=== PATIENT | male | born 1945 | race Caucasian/White ===

== ENCOUNTER 2017-09-23 11:02 | Observation (INO) ==
--- NOTE | 2017-09-23 11:08 | Emergency Department Note ---
Disposition Clinical Impression: Dehydration, Generalized weakness Fatigue Qualifiers: Fatigue type: unspecified Qualified Code(s): R53.83 - Other fatigue Fever Qualifiers: Fever type: unspecified Qualified Code(s): R50.9 - Fever, unspecified Disposition: Admitted As Inpatient Condition: Good Time of Disposition: 11:57 General Adult HPI - General Chief complaint: ED General Medical Stated complaint: Flu-Like Symptoms x 3 weeks Time Seen by Provider: 09/23/17 11:05 Source: patient, EMS Mode of arrival: EMS Limitations: no limitations Nursing Notes Reviewed: Yes Vital Signs Reviewed: Yes - History of Present Illness HPI Narrative: Patient is a 72-year-old male with past medical history of hypertension, diabetes, high cholesterol. He presents today from home due to generalized fatigue and weakness, decreased appetite, fever, nausea, urinary urgency and frequency. Patient states that for the past 3 weeks, he has felt "generally unwell". The symptoms of been worsening over the past 3 weeks, especially worsened over the past 3-4 days. Patient was seen at urgent care outside and was tested for flu. Patient states that flu swab was negative but he was still treated with Tamiflu. Today, he had a fever at home up to 102 per . The patient otherwise denies any rhinorrhea, cough, congestion, sore throat, chest pain, productive cough, over abdominal pain, vomiting. He does admit to occasional cough, feeling generally fatigued. He also has noticed that he has been having a more urgent sensation to urinate but denies any dysuria, hematuria. Denies any diarrhea, constipation, blood in stool. He also feels as though he is dehydrated due to decreased intake. Denies any cardiac history of NH, stents. - Related Data Home Medications Medication Instructions Recorded Confirmed ALPRAZolam [Xanax 0.5 MG Tablet] 0.5 mg PO TID 10/05/16 09/23/17 Albuterol Sulfate [Ventolin Hfa] 2 puff IH Q4-6H PRN 10/05/16 09/23/17 Ciclopirox 1 appl TP BID 10/05/16 09/23/17 Clobetasol Propionate [Temovate] 1 appl TP BID 10/05/16 09/23/17 Losartan Potassium [Cozaar] 100 mg PO DAILY 10/05/16 09/23/17 Pantoprazole Sodium [Protonix] 40 mg PO DAILY 10/05/16 09/23/17 Simvastatin [Zocor] 20 mg PO HS 10/05/16 09/23/17 glipiZIDE [Glucotrol] 5 mg PO BIDWM 10/05/16 09/23/17 hydroCHLOROthiazide 25 mg PO DAILY 10/05/16 09/23/17 [Hydrochlorothiazide] metFORMIN [Glucophage] 500 mg PO BIDWM 10/05/16 09/23/17 Sildenafil Citrate [Viagra] 100 mg PO DAILY PRN 09/23/17 09/23/17 Previous Rx's Medication Instructions Recorded Oseltamivir [Tamiflu] 75 mg PO BID #10 capsule 09/21/17 Allergies Allergy/AdvReac Type Severity Reaction Status Date / Time No Known Allergies Allergy Verified 09/23/17 12:56 All systems ED: reviewed and negative except as stated. Constitutional: Reports: fever, weakness Eyes: Denies: eye pain ENT ED: Denies: ear pain, throat pain, congestion Cardiovascular: Denies: chest pain, palpitations Respiratory: Reports: cough. Denies: dyspnea, wheezes, hemoptysis, sputum production Gastrointestinal: Reports: nausea. Denies: abdominal pain, vomiting, diarrhea, constipation, hematemesis, melena, hematochezia Genitourinary: Reports: urgency, frequency. Denies: dysuria, hematuria Integumentary: Denies: rash Neurological: Denies: headache, numbness, paresthesias Endocrine: Reports: fatigue Past Medical History - Past Medical History Attestation: Yes The following information was validated with the patient. Source: patient Medical history: Reports: diabetes, hypertension Surgical history: Reports: appendectomy, orthopedic, other, other Psychiatric history: Reports: no psych history - Social History Smoking Status: Never smoker Smokeless Tobacco Status: No Alcohol use: Reports: none Drug use: Reports: none Physical Exam - General Limitations: no limitations General appearance: alert, in no apparent distress, other (looks to feel generally unwell) - Head Head exam: atraumatic, normocephalic, normal inspection - Eye Eye exam: Present: normal appearance, PERRL, EOMI - ENT ENT exam: other (mucous membranes tacky, no erythema or exudate) - Neck Neck exam: Present: normal inspection, full ROM, trachea midline - Chest Chest inspection: Present: normal inspection, symmetric chest wall rise - Respiratory Respiratory exam: Present: normal lung sounds bilaterally. Absent: respiratory distress, wheezes, stridor - Cardiovascular Cardiovascular exam: Present: normal rhythm, tachycardia, normal heart sounds - Abdominal Exam Abdominal exam: Present: soft, Non-Tender. Absent: tenderness, distention, guarding, rebound, rigidity - Extremities Exam Extremities exam: Present: normal inspection, full ROM. Absent: tenderness, pedal edema - Neurological Exam Neurological exam: Present: alert, oriented X3. Absent: motor sensory deficit - Psychiatric Psychiatric exam: Present: normal mood, flat affect - Skin Skin exam: Present: warm, dry, intact, normal color. Absent: rash Course Course Narrative: Patient was tachycardic on presentaiton, otherwise the rest of the vitals were WNL. Physical exam shows a patient who appears to feel unwell, heart exam shows sinus tach, lungs CTA bilaterally. Abdominal exam benign and shows no tenderness. HEENT benign except for tacky mucous membranes. Will obtain EKG, trop, CXR due to generalized fatigue. Will also obtain basic bloodwork, LFTs. Will give the patient NS for tacky mucous membranes and tachycardia. No nausea or pain at this time. 11:38 EKG shows sinus tachycardia with no acute ST changes. 12:33 CBC shows no signs of leukocytosis. Hemoglobin within normal limits. BMP shows mildly decreased sodium that would go along with his dehydration. Otherwise, endometrial ischial abnormalities. LFTs show a very mild increase in total bilirubin and AST. Patient has no right upper quadrant tenderness on exam, do not feel that he warrants a gallbladder ultrasound at this time. Urinalysis shows no bacteria, trace leukocyte esterase, nitrate negative. X- ray negative for any acute cardiopulmonary process. Presenation likely consistent with a viral illness. Patient was given 1 L normal saline bolus here and he was reassessed. Patient and state that they are not comfortable with going home because the patient still feels generally weak, cannot get out of the bed. also states that he has not been able to get out of the bed to go to the restroom. We will give the patient another liter saline bolus and placed on maintenance fluids. We will admit the patient for general weakness, fatigue, dehydration, history of fever. We will also give the patient Motrin for generalized body ache. Remains afebrile during ER visit. Vital Signs Temperature 97.1 F L 09/23/17 11:04 Pulse Rate 104 09/23/17 11:04 Respiratory Rate 18 09/23/17 11:04 Blood Pressure 124/77 09/23/17 11:04 O2 Sat by Pulse Oximetry 94 09/23/17 11:04 Temperature 100.5 F H 09/23/17 13:55 Pulse Rate 90 09/23/17 13:55 Respiratory Rate 18 09/23/17 13:55 Blood Pressure 119/78 09/23/17 13:55 O2 Sat by Pulse Oximetry 96 09/23/17 13:55 Oxygen Delivery Oxygen Delivery Room Air Medical Decision Making - MDM Narrative Medical decision making narrative: CBC shows no signs of leukocytosis. Hemoglobin within normal limits. BMP shows mildly decreased sodium that would go along with his dehydration. Otherwise, endometrial ischial abnormalities. LFTs show a very mild increase in total bilirubin and AST. Patient has no right upper quadrant tenderness on exam, do not feel that he warrants a gallbladder ultrasound at this time. Urinalysis shows no bacteria, trace leukocyte esterase, nitrate negative. X- ray negative for any acute cardiopulmonary process. Presenation likely consistent with a viral illness. Patient was given 1 L normal saline bolus here and he was reassessed. Patient and state that they are not comfortable with going home because the patient still feels generally weak, cannot get out of the bed. also states that he has not been able to get out of the bed to go to the restroom. We will give the patient another liter saline bolus and placed on maintenance fluids. We will admit the patient for general weakness, fatigue, dehydration, history of fever. We will also give the patient Motrin for generalized body ache. Remains afebrile during ER visit. - Medical Records Medical records reviewed: Yes I reviewed the patient's medical records. - Lab Data Lab results reviewed: Yes I reviewed the patient's lab results. Result diagrams: 09/23/17 11:17 09/23/17 11: Lab Results 09/23/17 09/23/17 09/23/17 Range/Units 11:17 11:17 11:17 WBC 9.5 (4.3-11.1) K/mcL RBC 4.80 (4.19-5.50) M/mcL Hgb 14.3 (12.9-16.9) g/dL Hct 40.6 (37.5-50.1) % MCV 84.6 (83.0-100.0) fL MCH 29.8 (28.0-33.3) pg MCHC 35.2 (31.6-35.5) g/dL RDW 12.7 (11.5-14.5) % Plt Count 148 (140-400) K/mcL MPV 9.3 L (9.4-12.4) fL Immature Gran % 0.4 (0-4) % Seg Neutrophils % 87.7 % Lymphocytes % 5.3 % Monocytes % 6.3 % Eosinophils % 0.0 % Basophils % 0.3 % Neutrophils # 8.3 (1.6-8.9) K/mcL Lymphocytes # 0.5 L (0.6-4.6) K/mcL Monocytes # 0.6 (0.0-1.3) K/mcL Eosinophils # 0.0 (0.0-0.6) K/mcL Basophils # 0.0 (0.0-0.2) K/mcL Sodium 134 L (136-145) mEq/L Potassium 3.3 L (3.5-4.5) mEq/L Chloride 99 (98-109) mEq/L Carbon Dioxide 25 (19-29) mEq/L BUN 17 (8-26) mg/dL Creatinine 1.07 (0.72-1.25) mg/dL Est GFR ( Amer) > 60 (> 60) Est GFR (Non-Af Amer) > 60 (> 60) BUN/Creatinine Ratio 16 (6-26) Glucose 118 H (70-99) mg/dL POC Glucose (58-89) Calculated Osmolality 281 (280-300) Calcium 8.9 (8.6-10.8) mg/dL Total Bilirubin 1.5 H (0.2-1.2) mg/dL AST 53 H (5-34) Units/L ALT 44 (0-55) Units/L Alkaline Phosphatase 69 (38-126) Units/L Troponin I 0.01 (0-0.03) ng/mL Serum Total Protein 7.6 (6.0-8.3) g/dL Albumin 2.8 L (3.5-5.0) g/dL Globulin 4.8 H (2.4-3.5) g/dL Albumin/Globulin Ratio 0.6 L (1.1-2.2) Urine Color (Yellow) Urine Clarity (Clear) Urine pH (5.0-8.0) pH Units Ur Specific [place] (1.010-1.025) Urine Protein (Neg-Trace) mg/dL Urine Glucose (UA) (Normal) mg/dL Urine Ketones (Negative) mg/dL Urine Blood (Negative) Urine Nitrite (Negative) Urine Bilirubin (Negative) Urine Urobilinogen (Normal) mg/dL Ur Leukocyte Esterase (Negative) Urine Microscopic RBC (0-3) per hpf Urine Microscopic WBC (0-3) per hpf Ur Squamous Epith Cells (None-Few) per lpf Amorphous Sediment (Few) Urine Bacteria (None-Few) per hpf Hyaline Casts Urine Mucus (Few) Ur Culture Indicated? (NO) 09/23/17 09/23/17 Range/Units 11:30 11:34 WBC (4.3-11.1) K/mcL RBC (4.19-5.50) M/mcL Hgb (12.9-16.9) g/dL Hct (37.5-50.1) % MCV (83.0-100.0) fL MCH (28.0-33.3) pg MCHC (31.6-35.5) g/dL RDW (11.5-14.5) % Plt Count (140-400) K/mcL MPV (9.4-12.4) fL Immature Gran % (0-4) % Seg Neutrophils % % Lymphocytes % % Monocytes % % Eosinophils % % Basophils % % Neutrophils # (1.6-8.9) K/mcL Lymphocytes # (0.6-4.6) K/mcL Monocytes # (0.0-1.3) K/mcL Eosinophils # (0.0-0.6) K/mcL Basophils # (0.0-0.2) K/mcL Sodium (136-145) mEq/L Potassium (3.5-4.5) mEq/L Chloride (98-109) mEq/L Carbon Dioxide (19-29) mEq/L BUN (8-26) mg/dL Creatinine (0.72-1.25) mg/dL Est GFR ( Amer) (> 60) Est GFR (Non-Af Amer) (> 60) BUN/Creatinine Ratio (6-26) Glucose (70-99) mg/dL POC Glucose 124 H (58-89) Calculated Osmolality (280-300) Calcium (8.6-10.8) mg/dL Total Bilirubin (0.2-1.2) mg/dL AST (5-34) Units/L ALT (0-55) Units/L Alkaline Phosphatase (38-126) Units/L Troponin I (0-0.03) ng/mL Serum Total Protein (6.0-8.3) g/dL Albumin (3.5-5.0) g/dL Globulin (2.4-3.5) g/dL Albumin/Globulin Ratio (1.1-2.2) Urine Color Dark Yellow (Yellow) Urine Clarity Turbid A (Clear) Urine pH 6.0 (5.0-8.0) pH Units Ur Specific [place] > 1.030 H (1.010-1.025) Urine Protein 100 H (Neg-Trace) mg/dL Urine Glucose (UA) 100 H (Normal) mg/dL Urine Ketones Trace H (Negative) mg/dL Urine Blood Negative (Negative) Urine Nitrite Negative (Negative) Urine Bilirubin Small H (Negative) Urine Urobilinogen Normal (Normal) mg/dL Ur Leukocyte Esterase Trace H (Negative) Urine Microscopic RBC 0-3 (0-3) per hpf Urine Microscopic WBC 15-30 H (0-3) per hpf Ur Squamous Epith Cells Many H (None-Few) per lpf Amorphous Sediment Moderate H (Few) Urine Bacteria None Seen (None-Few) per hpf Hyaline Casts [employer] Urine Mucus Few (Few) Ur Culture Indicated? YES A (NO) - Radiology Data Radiology results reviewed: Yes I reviewed the patient's radiology results. Chest X-Ray 09/23/17 11:12 IMPRESSION: No acute cardiopulmonary findings. D/ / Estephania Mas MD / Estephania Mas MD Interpreting Provider: Estephania Mas MD - EKG Data EKG #1 EKG attestation: Yes I reviewed and interpreted this EKG. EKG results narrative: Laboratory 1711:04. Sinus tachycardia. Rate 107. CO 159. QRS 97. QTC 375. Left axis deviation. No acute ST elevation or depression. RSR formation seen in lead 2, 3, aVF. Attestation Statement - Attestation Attestation: I, Yury Bangura, examined this patient and my medical decision-making was reviewed with the HORSE BREEDER/PA/Advanced Practice Nurse/Resident Physician. I agree with the documented findings, disposition and treatment plan as described except to the extent set forth below. 72-year-old male presents emergency department with increasing rate weakness over the past 2-3 days. Never anything like this in the past. Was evaluated by an urgent care with a negative influenza AB swab however he was still prescribed Tamiflu which she has been taking without improvement of his symptoms. Patient described mild dysuria and a nonproductive intermittent cough. Patient states fever reached 102.8 prior to receiving antipyretics this morning. He has not been eating or drinking well over the past week secondary to a loss of appetite. He is tachycardic in the emergency department and given a liter of fluids. Chest x-ray was negative for acute infiltrate. Urinalysis was did not show an obvious urinary tract infection. Patient did not feel comfortable to return home and he will be admitted for further evaluation of his weakness and fever.
[2017-09-23] MEDS ORDERED: 0.9 % Sodium Chloride 1,000 ML IVC ONE ×2 (11:13→12:36)
[2017-09-23 11:25] LABS: Basophils % 0.3 %; Hematocrit 40.6 % (37.5-50.1); Hemoglobin 14.3 g/dL (12.9-16.9); Immature Granulocytes % 0.4 % (0-4); Lymphocytes # 0.5 K/mcL (0.6-4.6); Lymphocytes % 5.3 %; Mean Corpuscular HGB Conc 35.2 g/dL (31.6-35.5); Mean Corpuscular Hemoglobin 29.8 pg (28.0-33.3); Mean Corpuscular Volume 84.6 fL (83.0-100.0); Mean Platelet Volume 9.3 fL (9.4-12.4); Monocytes # 0.6 K/mcL (0.0-1.3); Monocytes % 6.3 %; Neutrophils # 8.3 K/mcL (1.6-8.9); Platelet Count 148 K/mcL (140-400); Red Cell Distribution Width 12.7 % (11.5-14.5); Segmented Neutrophils % 87.7 %
[2017-09-23 11:38] LABS: Alanine Aminotransferase 44 Units/L (0-55); Albumin 2.8 g/dL (3.5-5.0); Albumin/Globulin Ratio 0.6 (1.1-2.2); Alkaline Phosphatase 69 Units/L (38-126); Aspartate Amino Transferase 53 Units/L (5-34); BUN/Creatinine Ratio 16 (6-26); Bilirubin,Total 1.5 mg/dL (0.2-1.2); Blood Urea Nitrogen 17 mg/dL (8-26); Calcium 8.9 mg/dL (8.6-10.8); Carbon Dioxide 25 mEq/L (19-29); Chloride 99 mEq/L (98-109); Globulin 4.8 g/dL (2.4-3.5); Glucose 118 mg/dL (70-99); Osmolality,Calculated 281 (280-300); Potassium 3.3 mEq/L (3.5-4.5); Sodium 134 mEq/L (136-145); Total Protein 7.6 g/dL (6.0-8.3); eGFR For African Americans > 60 (> 60); eGFR For Non-African Americans > 60 (> 60)
[2017-09-23 11:38] LABS: Bilirubin,Urine Small (Negative); Blood,Urine Negative (Negative); Clarity,Urine Turbid (Clear); Color,Urine Dark Yellow (Yellow); Glucose,Urine (UA) 100 mg/dL (Normal); Ketones,Urine Trace mg/dL (Negative); Leukocyte Esterase,Urine Trace (Negative); Nitrite,Urine Negative (Negative); Protein,Urine 100 mg/dL (Neg-Trace); Specific Gravity,Urine > 1.030 (1.010-1.025); Urobilinogen,Urine Normal (Normal)
[2017-09-23 11:40] LABS: Bacteria,Urine None Seen per hpf (None-Few); Squamous Epithelial Cell,Urine Many per lpf (None-Few); WBC,Urine 15-30 per hpf (0-3)
[2017-09-23 11:52] LABS: Amorphous Sediment,Urine Moderate (Few); RBC,Urine 0-3 per hpf (0-3)
[2017-09-23 11:53] LABS: Mucus,Urine Few (Few)
[2017-09-23] MEDS ORDERED: Ibuprofen 600 MG TABLET PO ONE (12:36)
[2017-09-23] MEDS ORDERED: 0.9 % Sodium Chloride 1,000 ML IVC SCH (12:45)
[2017-09-23] MEDS ORDERED: Naloxone 0.4 MG/ML INJ IVP PRN (14:20)
[2017-09-23] MEDS ORDERED: *HR* HYDROcodone/Acet 5/325 mg TABLET PO PRN (14:20)
[2017-09-23] MEDS ORDERED: Acetaminophen 325 MG TABLET PO PRN (14:20)
[2017-09-23] MEDS ORDERED: Ondansetron 4 MG/2 ML VIAL IVP PRN (14:20)
[2017-09-23] MEDS ORDERED: Ipratropium/Albuterol Neb 3 ML IH PRN (14:29)
--- NOTE | 2017-09-23 14:55 | Internal Med History&Physical ---
<GagandarriusjieKenneth mejia - Last Filed: 09/23/17 15:31> Date of Encounter: 09/23/17 Time of Encounter: 13:30 Assessment and Plan (1) Complicated UTI (urinary tract infection) Current visit: Yes Status: Acute Acute and complicated UTI. Pt. denies hx of UTIs. Initial U/A suggestive of UTI. Pt. reports urinary incontinence over the past three days with burning and urgency. Urine culture ordered. IVPB vancomycin w/pharmacy dosing and Zosyn 3.375 gm Q8 ordered for infection coverage. Pt. does no currently meet SIRS criteria but had will be monitored closely for signs of increasing infection, cardiac, and/or respiratory distress. Pt. was tachycardic on admission which has resolved. Continuous cardiac telemetry. Pt. is at high risk for infection based on current sx, three-week hx of generalized weakness/fatigue, and risk factors. Observation. (2) Dehydration Current visit: Yes Status: Acute Acute dehydration r/t patient's reduced oral intake of fluids and food for the past three days. Pt. received 2 IV boluses of NS in ED. Will continue 0.9 NS @ 75 mL/HR. Monitor f/u labs. (3) Hyponatremia Current visit: Yes Status: Acute Acute hyponatremia with sodium level of 134 on admission. Pt. given 0.9 NS boluses and f/u fluids. Monitor f/u labs for sodium status. (4) Hypokalemia Current visit: Yes Status: Acute Acute hypokalemia with potassium of 3.3 on admission. Administer 20 mEq potassium PO. Monitor f/u labs for potassium status. (5) Generalized weakness Current visit: Yes Status: Acute Acute generalized weakness and fatigue that pt. reports for the past three weeks , worsening in the past three days. Falls/safety precautions. IV 0.9 NS for dehydration. IVPB abx for UTI. (6) HTN (hypertension) Current visit: Yes Status: Chronic Hx of chronic HTN. Monitor pt. and VS. Continue pts. Cozaar and hydrochlorothiazide. Qualifiers: Hypertension type: essential hypertension Qualified Code(s): I10 - Essential (primary) hypertension (7) GERD (gastroesophageal reflux disease) Current visit: Yes Status: Chronic Hx of chronic GERD. Pt. reports current nausea sx. IVP Zofran Q6 PRN for nausea. Continue pts. PO Protonix. Qualifiers: Esophagitis presence: esophagitis presence not specified Qualified Code(s) : K21.9 - Gastro-esophageal reflux disease without esophagitis (8) Diabetes Current visit: Yes Status: Chronic Hx of chronic diabetes controlled w/oral anti-hyperglycemic medications. Hold orals and administer low-dose correction insulin sliding scale and hypoglycemic protocol. BG checks ACHS. A1c in a.m. labs. Qualifiers: Diabetes mellitus type: type 2 Diabetes mellitus complication status: with unspecified complications Diabetes mellitus joint terminal attack controller insulin use: without snf use Qualified Code(s): E11.8 - Type 2 diabetes mellitus with unspecified complications (9) DVT prophylaxis Current visit: Yes Status: Acute Heparin 5,000 units SQ Q8 for DVT prophylaxis. Monitor pt. for signs of bleeding. Internal Medicine - H&P: HPI Chief complaint: Weakness/Fatigue Admitted From: Emergency Dept Plans for Post Hospital Care: Home History of present illness: Mr. Combs is a 72 year old male with medical hx of GERD, is controlled with oral antihyperglycemic medications, and hypertension presents to ED with chief complaint of generalized weakness and fatigue for the past 3 weeks which has become worse in the past 3 days. Patient reports symptoms of nausea, fever, chills, diarrhea, cough, lack of appetite, and mild confusion. Patient also states he has been recently incontinent of urine and bowel movement which is never happened before. Patient reports he thought he had the flu and was placed on Tamiflu but tests came back negative. Mr. Combs denies vomiting, abdominal pain, shortness of breath, chest congestion, sore throat, chest pain, palpitations, constipation, unusual bleeding, changes in vision, dizziness, lightheadedness, pre-syncope, or syncope. Past Med Surg Social Fam HX - Past Medical History Source: patient, old records reviewed, obtained from family Medical history: diabetes (Controlled w/oral medications), GERD, hypertension Psychiatric history: no psych history - Past Surgical History Surgical History: appendectomy, orthopedic, other, other - Social History Smoking Status: Former smoker Packs per day: 1 PPD - Reports quitting >30 years ago Smokeless Tobacco Status: No Alcohol use: none Drug use: none Current living situation: Home, With Family Activity Level: Independent ambulation Recent Out of Country Travel Within the Last 8 Weeks: No Exposure or Possible Exposure to Illness During Travel: No - Family History Father Race: Family Member Ethnicity: Non- Living Status: Age at : 86 Cause of : Prostate cancer Hx Family Cardiac Disorders: Yes (Arrhythmia) Hx Family Cancer: Yes (Prostate) Mother Race: Family Member Ethnicity: Non- Living Status: Age at : 76 Cause of : DM complications Hx Family Endocrine Disorder: Yes (DM) Internal Medicine - H&P: Meds ALPRAZolam [Xanax 0.5 MG Tablet] 0.5 mg PO TID 10/05/16 [History] Albuterol Sulfate [Ventolin Hfa] 2 puff IH Q4-6H PRN 10/05/16 [History] Ciclopirox 1 appl TP BID 10/05/16 [History] Clobetasol Propionate [Temovate] 1 appl TP BID 10/05/16 [History] Losartan Potassium [Cozaar] 100 mg PO DAILY 10/05/16 [History] Pantoprazole Sodium [Protonix] 40 mg PO DAILY 10/05/16 [History] Simvastatin [Zocor] 20 mg PO HS 10/05/16 [History] glipiZIDE [Glucotrol] 5 mg PO BIDWM 10/05/16 [History] hydroCHLOROthiazide [Hydrochlorothiazide] 25 mg PO DAILY 10/05/16 [History] metFORMIN [Glucophage] 500 mg PO BIDWM 10/05/16 [History] Oseltamivir [Tamiflu] 75 mg PO BID #10 capsule 09/21/17 [Rx] Sildenafil Citrate [Viagra] 100 mg PO DAILY PRN 09/23/17 [History] 3 Allergy/AdvReac Type Severity Reaction Status Date / Time No Known Allergies Allergy Verified 09/23/17 12:56 All Systems PM: A 10-system review of systems was performed and is negative for pertinent findings except as documented above in the HPI. - Constitutional Constitutional: as per HPI, chills, fatigue, fever(s), weakness, no night sweats - EENT Eyes: no change in vision, no discharge, no pain, no photophobia Ears: no ear discharge, no ear pain, no tinnitus Nose, mouth and throat: no dysphagia, no nasal discharge, no neck pain, no sore throat - Breasts Breasts: as per HPI - Cardiovascular Cardiovascular ROS IM: no chest pain, no diaphoresis, no dyspnea, no lightheadedness, no palpitations, no syncope - Respiratory Respiratory: no cough, no dyspnea, no wheezing, no excessive phlegm production - Gastrointestinal Gastrointestinal: as per HPI, diarrhea, nausea, other (Bowel incontinence w/ diarrhea) - Genitourinary Genitourinary ROS male: as per HPI, urinary incontinence - Musculoskeletal Musculoskeletal ROS IM: no numbness, no tingling - Integumentary Integumentary IM: no rash, no unusual bruising - Neurological Neurological ROS: no confusion, no convulsions, no focal weakness, no numbness, no tingling, no tremor(s) - Psychiatric Psychiatric: as per HPI - Endocrine Endocrine IM: as per HPI - Hematologic/Lymphatic Hematologic/Lymphatic: no easy bruising - Allergic/Immunologic Allergic/Immunologic: as per HPI - Constitutional Vitals: Temp Pulse Resp BP Pulse Ox 100.5 F H 90 18 119/78 96 09/23/17 13:55 09/23/17 13:55 09/23/17 13:55 09/23/17 13:55 09/23/17 13:55 General appearance: Present: cooperative, A&O X 3, pleasant, no acute distress, obese, answers questions appropriately - Head Head exam: Present: atraumatic, normal inspection, normocephalic - Eye Eye exam: Present: PERRL, conjuntiva pink, sclera anicteric Pupils: Present: PERRL - ENT ENT exam: Present: normal exam, normal external ear exam - Neck Neck exam general surgery: Present: normal inspection, supple, trachea midline. Absent: lymphadenopathy - Respiratory Respiratory exam: Present: CTAB. Absent: accessory muscle use, rales, rhonchi, wheezes - Cardiovascular Cardiovascular exam: Present: +S1, +S2, tachycardia. Absent: diastolic murmur, gallop, rubs, systolic murmur - GI/Abdominal GI/Abdominal exam: Present: normal bowel sounds, soft, no peritoneal signs. Absent: distended, tenderness - Rectal Rectal exam: Present: deferred - Additional comments: exam deferred. - Extremities Exam Extremities exam: Present: warm, radial pulses palpable and symmetrical. Absent : calf tenderness, cyanotic, pedal edema - Back Exam Back exam: Present: normal inspection - Neurological Exam Neurological exam: Present: CN II-XII intact, oriented X3, no focal deficits. Absent: pronater drift, facial droop, speech deficit - Psychiatric Psychiatric exam: Present: normal affect, normal mood - Skin Skin exam: Present: dry, intact Internal Med - H&P Results - Labs CBC & Chem 7: 09/23/17 11:17 09/23/17 11:17 - EKG Data EKG shows normal: sinus rhythm Rate: tachycardia - EKG Data Prior EKG available for review: no EKG comments: 09/23/17 15:05 EKG dated 09/23/17 shows sinus tachycardia with occasional ventricular premature complexes, marked left axis deviation, pattern consistent with pulmonary disease. - Diagnostic Studies Chest x-ray Additional comments: Impressions Chest X-Ray 09/23/17 11:12 IMPRESSION: No acute cardiopulmonary findings. D/ / Estephania Mas MD / Estephania Mas MD Interpreting Provider: Estephania Mas MD <Cliff Wakefield P - Last Filed: 09/24/17 08:40> Date of Encounter: 09/24/17 Internal Medicine - H&P: HPI History of present illness: Mr. Combs is a 72 year old male All Systems PM: A 10-system review of systems was performed and is negative for pertinent findings except as documented above in the HPI. - Constitutional Vitals: Temp Pulse Resp BP Pulse Ox 98.4 F 93 24 115/70 96 09/24/17 06:27 09/24/17 06:27 09/24/17 06:27 09/24/17 06:27 09/24/17 06:27 Internal Med - H&P Results - Labs CBC & Chem 7: 09/24/17 04:01 09/24/17 04:01 Labs: Short CBC 09/23/17 09/24/17 Range/Units 22:38 04:01 WBC 8.4 9.4 (4.3-11.1) K/mcL Hgb 13.1 11.8 L (12.9-16.9) g/dL Hct 36.4 L 34.2 L (37.5-50.1) % Plt Count 139 L 131 L (140-400) K/mcL Neutrophils # 7.7 8.1 (1.6-8.9) K/mcL BMP 09/23/17 09/24/17 22:38 04:01 Sodium 136 137 Potassium 3.4 L 3.2 L Chloride 102 104 Carbon Dioxide 24 26 BUN 24 21 Creatinine 1.28 H 1.19 Glucose 127 H 95 Calcium 8.2 L 7.8 L Liver Function 09/24/17 Range/Units 04:01 Total Bilirubin 2.0 H (0.2-1.2) mg/dL AST 107 H (5-34) Units/L ALT 72 H (0-55) Units/L Alkaline Phosphatase 99 (38-126) Units/L Albumin 2.1 L D (3.5-5.0) g/dL - Attending Attestation I examined this patient and my medical decision-making was reviewed with the Resident Physician/[employer]. I agree with the documented findings, disposition and treatment plan as described except to the extent set forth below. Patient seen and examined by me. Chart reviewed. 72-year-old male admitted with profound weakness/fatigue. Baseline workup showed possible urinary tract infection. Presently on antibiotics after the blood cultures/urine culture We will keep following the results.
[2017-09-23] MEDS ORDERED: Vancomycin 1,750 MG in D5% in Water 250 ML IVPB SCH (15:00)
[2017-09-23] MEDS ORDERED: cefTRIAXone 1,000 MG in Water for inj. (sterile) 10 ML IVP SCH (15:00)
[2017-09-23] MEDS ORDERED: Dextrose Gel 15 GM PO PRN ×2 (15:14)
[2017-09-23] MEDS ORDERED: *HR* Dextrose 50 % in Water (Syg) 50 ML SYRINGE IVP PRN (15:14)
[2017-09-23] MEDS ORDERED: D5% in Water 1,000 ML IVC PRN (15:14)
[2017-09-23] MEDS: ALPRAZolam 0.5 MG TABLET PO SCH ×2 (15:16→20:04)
[2017-09-23] MEDS: 0.9 % Sodium Chloride 1,000 ML IVC SCH (15:17)
[2017-09-23] MEDS ORDERED: Piperacillin/Tazobactam 3.375 GM in D5% in Water (Mini-Bag+) 100 ML IVPB SCH (16:00)
[2017-09-23] MEDS: Vancomycin 1,500 MG in D5% in Water 250 ML IVPB SCH (16:07)
[2017-09-23] MEDS: Piperacillin/Tazobactam 3.375 GM in 0.9 % Sodium Chloride Mini Bag 100 ML IVPB SCH (16:08)
[2017-09-23] MEDS: Insulin LISPRO 300 UNITS/3 ML VIAL SQ SCH ×2 (17:40→20:33)
[2017-09-23] MEDS: CICLOPIROX APPL TP SCH (20:05)
[2017-09-23] MEDS: CLOBETASOL PROPIONATE 15 GM TUBE TP SCH (20:05)
[2017-09-23] MEDS: *HR* Heparin 5,000 UNIT/ML VIAL SQ SCH (22:16)
[2017-09-23 22:47] LABS: Hematocrit 36.4 % (37.5-50.1); Hemoglobin 13.1 g/dL (12.9-16.9); Lymphocytes # 0.3 K/mcL (0.6-4.6); Mean Corpuscular Hemoglobin 30.7 pg (28.0-33.3); Mean Corpuscular Volume 85.2 fL (83.0-100.0); Mean Platelet Volume 9.8 fL (9.4-12.4); Platelet Count 139 K/mcL (140-400); Red Blood Count 4.27 M/mcL (4.19-5.50); Red Cell Distribution Width 12.9 % (11.5-14.5)
[2017-09-23 23:00] LABS: BUN/Creatinine Ratio 19 (6-26); Blood Urea Nitrogen 24 mg/dL (8-26); Calcium 8.2 mg/dL (8.6-10.8); Carbon Dioxide 24 mEq/L (19-29); Chloride 102 mEq/L (98-109); Glucose 127 mg/dL (70-99); Osmolality,Calculated 288 (280-300); Potassium 3.4 mEq/L (3.5-4.5); Sodium 136 mEq/L (136-145); eGFR For African Americans > 60 (> 60); eGFR For Non-African Americans 56 (> 60)
[2017-09-23 23:31] LABS: Monocytes # 0.3 K/mcL (0.0-1.3); Neutrophils # 7.7 K/mcL (1.6-8.9); Platelet Estimate Slight Decrease (Normal); Toxic Vacuolation Present (Not Present)
[2017-09-24] MEDS: Piperacillin/Tazobactam 3.375 GM in 0.9 % Sodium Chloride Mini Bag 100 ML IVPB SCH ×4 (01:56→17:56)
[2017-09-24] MEDS ORDERED: 0.9 % Sodium Chloride 250 ML IVC ONE (02:36)
[2017-09-24] MEDS: 0.9 % Sodium Chloride 1,000 ML IVC SCH ×2 (03:10→13:34)
[2017-09-24 04:45] LABS: Hematocrit 34.2 % (37.5-50.1); Hemoglobin 11.8 g/dL (12.9-16.9); Mean Corpuscular HGB Conc 34.5 g/dL (31.6-35.5); Mean Corpuscular Hemoglobin 29.7 pg (28.0-33.3); Mean Corpuscular Volume 86.1 fL (83.0-100.0); Mean Platelet Volume 10.1 fL (9.4-12.4); Platelet Count 131 K/mcL (140-400); Red Blood Count 3.97 M/mcL (4.19-5.50)
[2017-09-24 04:50] LABS: Hemoglobin A1C 7.4 %
[2017-09-24 05:01] LABS: Alanine Aminotransferase 72 Units/L (0-55); Albumin/Globulin Ratio 0.5 (1.1-2.2); Alkaline Phosphatase 99 Units/L (38-126); Aspartate Amino Transferase 107 Units/L (5-34); BUN/Creatinine Ratio 18 (6-26); Blood Urea Nitrogen 21 mg/dL (8-26); Calcium 7.8 mg/dL (8.6-10.8); Carbon Dioxide 26 mEq/L (19-29); Chloride 104 mEq/L (98-109); Chol/HDL Ratio 5.9 (0-4.9); Globulin 3.9 g/dL (2.4-3.5); Glucose 95 mg/dL (70-99); HDL Cholesterol 13 mg/dL (40-59); LDL Cholesterol,Calculated 43 mg/dL (0-99); Magnesium 1.3 mg/dL (1.6-2.6); Osmolality,Calculated 287 (280-300); Phosphorous 2.4 mg/dL (2.3-4.7); Potassium 3.2 mEq/L (3.5-4.5); Sodium 137 mEq/L (136-145); Triglycerides 106 mg/dL (< 150); eGFR For African Americans > 60 (> 60); eGFR For Non-African Americans > 60 (> 60)
[2017-09-24 05:08] LABS: Albumin 2.1 g/dL (3.5-5.0); Cholesterol 77 mg/dL (< 200)
[2017-09-24 05:32] LABS: Platelet Estimate Slight Decrease (Normal)
[2017-09-24 05:37] LABS: Eosinophils # 0.4 K/mcL (0.0-0.6); Lymphocytes # 0.8 K/mcL (0.6-4.6); Monocytes # 0.2 K/mcL (0.0-1.3); Neutrophils # 8.1 K/mcL (1.6-8.9)
[2017-09-24] MEDS: *HR* Heparin 5,000 UNIT/ML VIAL SQ SCH ×3 (06:16→21:38)
[2017-09-24] MEDS: Insulin LISPRO 300 UNITS/3 ML VIAL SQ SCH ×4 (08:12→21:38)
[2017-09-24] MEDS: CICLOPIROX APPL TP SCH ×2 (08:21→21:39)
[2017-09-24] MEDS: hydroCHLOROthiazide 25 MG TABLET PO SCH (08:27)
[2017-09-24] MEDS: ALPRAZolam 0.5 MG TABLET PO SCH ×3 (08:27→21:46)
--- NOTE | 2017-09-24 08:49 | Internal Med Progress Note ---
Date of Encounter: 09/24/17 Time of Encounter: 08:41 - Assessment and plan (1) Elevated bilirubin Current Visit: Yes Status: Acute Assessment and plan: Noted that patient has elevated bilirubin. Upon admissions patient bilirubin was 1.5. Today patient's bilirubin is 2. AST elevated from 53-107. ALT elevated from 44-72. At this point plan is to get a CT abdomen and pelvis with oral and IV contrast. We will get ultrasound of the liver along with that. If any abnormality detected then we will get the appropriate specialist on the board. This plan has been discussed with the patient during the morning around and he verbalized understanding. (2) Complicated UTI (urinary tract infection) Current Visit: Yes Status: Acute Assessment and plan: Patient's urinary symptoms are getting better. Noted that patient is on vancomycin/Zosyn. Blood cultures/urine culture is still pending. Plan: Will continue same antibiotics for now. We will start the deaccelerating the antibiotics depending on the blood cultures /urine culture results. (3) Dehydration Current Visit: Yes Status: Acute Assessment and plan: Yesterday patient's creatinine was 1.28 his morning is 1.19. There is a drop in hemoglobin from 13.1-11.8. This drop is likely secondary to hemoconcentration. (4) Hypokalemia Current Visit: Yes Status: Acute Assessment and plan: Noted that patient's potassium was 3.2. Potassium replaced. We will recheck the potassium/labs tomorrow (5) HTN (hypertension) Current Visit: Yes Status: Chronic Assessment and plan: Blood pressure is within acceptable range. We will continue the same medications. DVT prophylaxis: Heparin. Qualifiers: Hypertension type: essential hypertension Qualified Code(s): I10 - Essential (primary) hypertension - Subjective Interval history: Patient seen and examined. Chart reviewed. Patient is comfortably lying in bed. Patient denies any chest pain, shortness of breath, nausea, abdominal pain, dizziness or diarrhea. - Constitutional Vitals: Temp Pulse Resp BP Pulse Ox 98.4 F 93 24 115/70 96 09/24/17 06:27 09/24/17 06:27 09/24/17 06:27 09/24/17 06:27 09/24/17 06:27 General appearance: Present: cooperative, A&O X 3, pleasant, no acute distress, obese, answers questions appropriately - Head Head exam: Present: atraumatic, normocephalic - Eye Eye exam: Present: PERRL, conjuntiva pink, sclera anicteric Pupils: Present: PERRL - Neck Neck exam general surgery: Present: supple, trachea midline. Absent: lymphadenopathy - Respiratory Respiratory exam: Present: CTAB. Absent: accessory muscle use, rales, rhonchi, wheezes - Cardiovascular Cardiovascular exam: Present: RRR, +S1, +S2. Absent: diastolic murmur, gallop, rubs, systolic murmur - GI/Abdominal GI/Abdominal exam: Present: normal bowel sounds, soft, no peritoneal signs. Absent: distended, tenderness - Extremities Exam Extremities exam: Present: warm, radial pulses palpable and symmetrical. Absent : calf tenderness, cyanotic, pedal edema - Neurological Exam Neurological exam: Present: CN II-XII intact, oriented X3, no focal deficits. Absent: pronater drift, facial droop, speech deficit - Skin Skin exam: Present: dry, intact Internal Medicine: Result - Labs CBC & Chem 7: 09/24/17 04:01 09/24/17 04:01 Labs: Short CBC 09/23/17 09/24/17 Range/Units 22:38 04:01 WBC 8.4 9.4 (4.3-11.1) K/mcL Hgb 13.1 11.8 L (12.9-16.9) g/dL Hct 36.4 L 34.2 L (37.5-50.1) % Plt Count 139 L 131 L (140-400) K/mcL Neutrophils # 7.7 8.1 (1.6-8.9) K/mcL BMP 09/23/17 09/24/17 22:38 04:01 Sodium 136 137 Potassium 3.4 L 3.2 L Chloride 102 104 Carbon Dioxide 24 26 BUN 24 21 Creatinine 1.28 H 1.19 Glucose 127 H 95 Calcium 8.2 L 7.8 L Liver Function 09/24/17 Range/Units 04:01 Total Bilirubin 2.0 H (0.2-1.2) mg/dL AST 107 H (5-34) Units/L ALT 72 H (0-55) Units/L Alkaline Phosphatase 99 (38-126) Units/L Albumin 2.1 L D (3.5-5.0) g/dL Consult Discharge Plan - Plan Referrals: Eula Ashley MD [Primary Care Provider] -
[2017-09-24] MEDS: CLOBETASOL PROPIONATE 15 GM TUBE TP SCH ×2 (09:21→21:39)
--- NOTE | 2017-09-24 14:10 | Electrocardiograph Report ---
[place] [id number] Test Date: 2017-09-23 Pat Name: Mitchell Combs Department: 104 Room: 3B43 Gender: M [employer] Associate: : 1945 Requested By: Elio Rick Order Number: [id number] Reading MD: Elieser Ervin DO Measurements Intervals [place] Rate: 107 P: 41 MA: 159 QRS: -36 QRSD: 97 T: 0 QT: 313 QTc: 375 Interpretive Statements SINUS TACHYCARDIA PVC Left axis deviation Electronically Signed On 09-24-2017 14:08:46 EST by Elieser Ervin DO
--- NOTE | 2017-09-24 14:14 | Electrocardiograph Report ---
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
[2017-09-24] MEDS: Vancomycin 1,500 MG in D5% in Water 250 ML IVPB SCH (17:56)
[2017-09-25] MEDS: Piperacillin/Tazobactam 3.375 GM in 0.9 % Sodium Chloride Mini Bag 100 ML IVPB SCH ×2 (02:32→09:00)
[2017-09-25] MEDS: *HR* Heparin 5,000 UNIT/ML VIAL SQ SCH ×2 (03:10→14:11)
[2017-09-25 07:06] LABS: Alanine Aminotransferase 58 Units/L (0-55); Albumin 2.2 g/dL (3.5-5.0); Albumin/Globulin Ratio 0.5 (1.1-2.2); Alkaline Phosphatase 97 Units/L (38-126); Aspartate Amino Transferase 66 Units/L (5-34); BUN/Creatinine Ratio 15 (6-26); Bilirubin,Total 1.1 mg/dL (0.2-1.2); Blood Urea Nitrogen 15 mg/dL (8-26); Calcium 8.5 mg/dL (8.6-10.8); Carbon Dioxide 26 mEq/L (19-29); Chloride 103 mEq/L (98-109); Globulin 4.3 g/dL (2.4-3.5); Glucose 90 mg/dL (70-99); Osmolality,Calculated 286 (280-300); Sodium 138 mEq/L (136-145); Total Protein 6.5 g/dL (6.0-8.3); eGFR For African Americans > 60 (> 60); eGFR For Non-African Americans > 60 (> 60)
[2017-09-25 07:09] LABS: Basophils % 0.4 %; Eosinophils # 0.2 K/mcL (0.0-0.6); Eosinophils % 2.1 %; Hematocrit 32.9 % (37.5-50.1); Hemoglobin 11.6 g/dL (12.9-16.9); Immature Granulocytes % 1.7 % (0-4); Lymphocytes # 1.6 K/mcL (0.6-4.6); Mean Corpuscular HGB Conc 35.3 g/dL (31.6-35.5); Mean Corpuscular Hemoglobin 30.5 pg (28.0-33.3); Mean Corpuscular Volume 86.6 fL (83.0-100.0); Mean Platelet Volume 9.9 fL (9.4-12.4); Monocytes # 0.8 K/mcL (0.0-1.3); Monocytes % 8.3 %; Neutrophils # 6.6 K/mcL (1.6-8.9); Platelet Count 152 K/mcL (140-400); Red Cell Distribution Width 13.2 % (11.5-14.5); Segmented Neutrophils % 70.5 %
[2017-09-25] MEDS: Insulin LISPRO 300 UNITS/3 ML VIAL SQ SCH ×3 (08:46→18:16)
[2017-09-25] MEDS: CLOBETASOL PROPIONATE 15 GM TUBE TP SCH (08:51)
[2017-09-25] MEDS: ALPRAZolam 0.5 MG TABLET PO SCH ×2 (09:00→14:11)
[2017-09-25] MEDS: CICLOPIROX APPL TP SCH (09:00)
[2017-09-25] MEDS: hydroCHLOROthiazide 25 MG TABLET PO SCH (09:00)
[2017-09-25] MEDS: 0.9 % Sodium Chloride 1,000 ML IVC SCH ×2 (09:01→09:05)
[2017-09-25 15:24] VITALS: BP 108/70
[2017-09-25] MEDS ORDERED: Potassium Phosphate 44 MEQ in 0.9 % Sodium Chloride 250 ML IVPB ONE (16:09)
[2017-09-25] MEDS ORDERED: Potassium Chloride Elixir 20 MEQ/15 ML UDC PO SCH (16:15)
--- NOTE | 2017-09-25 17:27 | Discharge Summary ---
Date of Encounter: 09/25/17 Time of Encounter: 17:22 - Discharge Diagnosis (1) UTI (urinary tract infection) Priority: Secondary Status: Acute Qualifiers: Urinary tract infection type: acute cystitis Hematuria presence: without hematuria Qualified Code(s): N30.00 - Acute cystitis without hematuria (2) Fatigue Priority: Primary Status: Acute Qualifiers: Fatigue type: unspecified Qualified Code(s): R53.83 - Other fatigue (3) Generalized weakness Priority: Primary Status: Acute (4) Dehydration Priority: Primary Status: Acute - Discharge Medications Prescriptions: Cyanocobalamin (Vitamin B-12) [Vitamin B12] 1,000 mcg PO DAILY #90 tablet Ergocalciferol (VITAMIN D2) [Drisdol (50,000 Unit)] 50,000 unit PO QWEEK #15 capsule Home Medications: ALPRAZolam [Xanax 0.5 MG Tablet] 0.5 mg PO TID 10/05/16 [History] Albuterol Sulfate [Ventolin Hfa] 2 puff IH Q4-6H PRN 10/05/16 [History] Ciclopirox 1 appl TP BID 10/05/16 [History] Clobetasol Propionate [Temovate] 1 appl TP BID 10/05/16 [History] Losartan Potassium [Cozaar] 100 mg PO DAILY 10/05/16 [History] Pantoprazole Sodium [Protonix] 40 mg PO DAILY 10/05/16 [History] Simvastatin [Zocor] 20 mg PO HS 10/05/16 [History] glipiZIDE [Glucotrol] 5 mg PO BIDWM 10/05/16 [History] hydroCHLOROthiazide [Hydrochlorothiazide] 25 mg PO DAILY 10/05/16 [History] metFORMIN [Glucophage] 500 mg PO BIDWM 10/05/16 [History] Oseltamivir [Tamiflu] 75 mg PO BID #10 capsule 09/21/17 [Rx] Sildenafil Citrate [Viagra] 100 mg PO DAILY PRN 09/23/17 [History] Cyanocobalamin (Vitamin B-12) [Vitamin B12] 1,000 mcg PO DAILY #90 tablet [Rx] Ergocalciferol (VITAMIN D2) [Drisdol (50,000 Unit)] 50,000 unit PO QWEEK #15 capsule 09/25/17 [Rx] Allergies/Adverse Reactions: 3 Allergy/AdvReac Type Severity Reaction Status Date / Time No Known Allergies Allergy Verified 09/23/17 12:56 Procedures/tests Complete & Pending: Procedures Performed prior 72 hours Category Date Time Status CT abd pelvis w iv no oral [CT] Routine Cat Scan 09/24/17 08:39 Completed GB ultrasound [US gall bladder] [US] Routine Exams 09/24/17 17:00 Completed EKG [ECG 12 lead ECG] [ECG] Stat Y 09/23/17 22:29 Completed Date of admission: 09/23/17 13:05 Primary care physician: Eula Pereira Consults: 09/23/17 14:25 Consult to Occupational Therapy [CONS] Routine Comment: Evaluate, develop and implement POC Reason for Consult: Patient reports instability w/ambulation d/t weakness. Please assess for strength, stability, safety, ambulation, and possible assistive needs for post-discharge planning. Consult to Lead Generation Specialist [CONS] Routine Reason for SW Consult: Please assess patient for possible home needs for post -discharge planning. 09/23/17 14:27 Consult to Physical Therapy [CONS] Routine Comment: Evaluate, develop and implement POC Reason for Consult: Patient reports instability w/ambulation d/t weakness. Please assess for strength, stability, safety, ambulation, and possible assistive needs for post-discharge planning. Discharging clinician: Monty Bates Anticipated date of discharge: 09/25/17 - Patient Status Disposition: Home, Self-Care Condition: Good Functional capacity at discharge: independent ambulation Overall status at discharge: patient is progressing back to baseline - Discharge Instructions Instructions: Influenza Virus Vaccine (Injection), Urinary Tract Infection in Men (DC), Diabetes Mellitus Type 2 in Adults (DC), Chronic Hypertension (DC) Follow Up With: Eula Ashley MD [Primary Care Provider] - - Diet and Activity Activity: increase activity as tolerated Diet: diabetic diet, low fat, low cholesterol, low salt diet Hospital course: Mr. oCmbs is a 72 year old male presented to ED with chief complaint of generalized weakness and fatigue for the past 3 weeks which has become worse in the past 3 days. Patient reports symptoms of nausea, fever, chills, diarrhea, cough, lack of appetite, and mild confusion. Patient also states he has been recently incontinent of urine . Patient reports he thought he had the flu and was placed on Tamiflu but tests came back negative. Mr. Combs denies vomiting, abdominal changes in vision, dizziness, lightheadedness, pre-syncope, or syncope. Initial U/A suggestive of UTI. with his report of urinary incontinence over the past three days with burning and urgency. Urine culture ordered. Patient was placed on empiric antibiotic , final urine culture negative, patient was tachycardic on admission with signs of volume depletion. Patient received multiple IV fluid bolus, his creatinine went down from 1.28 - 1. Patient has hypokalemia hypomagnesemia electrolyte replacement was done. Patient was feeling better going back to his normal ambulating get without any problem. Patient denies any dizziness lightheadedness denies any motor or sensory changes denies any bowel or bladder incontinence. Patient discharged home in stable condition - Time Spent with Patient Total time spent providing and/or coordinating discharge services: Greater than 30 minutes - Constitutional Vitals: Temp Pulse Resp BP Pulse Ox 98.8 F 91 16 108/70 93 09/25/17 15:23 09/25/17 15:23 09/25/17 15:23 09/25/17 15:23 09/25/17 15:23 General appearance: Present: cooperative, A&O X 3, pleasant, no acute distress, obese, answers questions appropriately - Head Head exam: Present: atraumatic, normocephalic - Respiratory Respiratory exam: Present: CTAB. Absent: accessory muscle use, rales, rhonchi, wheezes - Cardiovascular Cardiovascular exam: Present: RRR, +S1, +S2. Absent: diastolic murmur, gallop, rubs, systolic murmur - GI/Abdominal GI/Abdominal exam: Present: normal bowel sounds, soft, no peritoneal signs. Absent: distended, tenderness - Extremities Exam Extremities exam: Present: warm, radial pulses palpable and symmetrical. Absent : calf tenderness, cyanotic, pedal edema - Neurological Exam Neurological exam: Present: CN II-XII intact, oriented X3, no focal deficits. Absent: pronater drift, facial droop, speech deficit
[2017-09-25] MEDS ORDERED: Magnesium Oxide 400 MG TABLET PO SCH (17:30)
[2017-09-25 18:06] LABS: Alanine Aminotransferase 60 Units/L (0-55); Albumin 2.2 g/dL (3.5-5.0); Albumin/Globulin Ratio 0.5 (1.1-2.2); Alkaline Phosphatase 109 Units/L (38-126); Aspartate Amino Transferase 67 Units/L (5-34); BUN/Creatinine Ratio 16 (6-26); Bilirubin,Total 0.8 mg/dL (0.2-1.2); Blood Urea Nitrogen 16 mg/dL (8-26); Calcium 8.5 mg/dL (8.6-10.8); Carbon Dioxide 25 mEq/L (19-29); Chloride 102 mEq/L (98-109); Globulin 4.5 g/dL (2.4-3.5); Glucose 182 mg/dL (70-99); Magnesium 1.5 mg/dL (1.6-2.6); Osmolality,Calculated 290 (280-300); Potassium 3.2 mEq/L (3.5-4.5); Sodium 137 mEq/L (136-145); Total Protein 6.7 g/dL (6.0-8.3); eGFR For African Americans > 60 (> 60); eGFR For Non-African Americans > 60 (> 60)
[2017-09-25] MEDS ORDERED: Aminoglycoside Consult 1 EACH MC ONE (18:49)
== END 2017-09-25 18:50 | disposition home or self-care (01) ==
LOC: EMEROO 11:02 → 3BNU 11:02
PROVIDERS: ADMIT Registered Nurse; ATTEND Registered Nurse

== ENCOUNTER 2020-08-21 11:12 | Inpatient (IN) ==
[2020-08-21 11:37] LABS: Basophils % 0.4 %; Eosinophils # 0.1 K/mcL (0.0-0.6); Eosinophils % 0.8 %; Hematocrit 43.8 % (37.5-50.1); Hemoglobin 14.8 g/dL (12.9-16.9); Immature Granulocytes % 0.5 % (0-4); Lymphocytes # 1.3 K/mcL (0.6-4.6); Lymphocytes % 15.3 %; Mean Corpuscular HGB Conc 33.8 g/dL (31.6-35.5); Mean Corpuscular Volume 85.9 fL (83.0-100.0); Mean Platelet Volume 9.4 fL (9.4-12.4); Monocytes # 0.5 K/mcL (0.0-1.3); Monocytes % 6.1 %; Neutrophils # 6.5 K/mcL (1.6-8.9); Platelet Count 255 K/mcL (140-400); Red Cell Distribution Width 13.3 % (11.5-14.5); Segmented Neutrophils % 76.9 %; White Blood Count 8.4 K/mcL (4.3-11.1)
[2020-08-21 11:39] LABS: Prothrombin Time 11.8 Seconds (9.4-12.1)
[2020-08-21 11:42] LABS: Activated Partial Thrombo Time 27.2 Seconds (26.0-36.0)
[2020-08-21 11:56] LABS: BUN/Creatinine Ratio 12 (6-26); Blood Urea Nitrogen 12 mg/dL (8-23); Calcium 10.3 mg/dL (8.6-10.3); Carbon Dioxide 27 mEq/L (23-29); Chloride 102 mEq/L (98-107); Glucose 167 mg/dL (70-105); Osmolality,Calculated 290 (280-300); Potassium 4.1 mEq/L (3.5-5.1); Sodium 138 mEq/L (136-145); Troponin I < 0.03 ng/mL (< 0.04); eGFR For African Americans > 60 (> 60); eGFR For Non-African Americans > 60 (> 60)
[2020-08-21] MEDS ORDERED: Aspirin 81 MG TAB.CHEW PO STA (12:11)
[2020-08-21] MEDS ORDERED: Ondansetron 4 MG/2 ML VIAL IVP PRN (12:20)
[2020-08-21] MEDS ORDERED: Naloxone 0.4 MG/ML INJ IVP PRN (12:20)
[2020-08-21] MEDS ORDERED: Perflutren Lipid Microsphere 1.3 ML in 0.9 % Sodium Chloride 8.7 ML IVP PRN (12:21)
[2020-08-21] MEDS ORDERED: Nitroglycerin 0.4 MG TAB.SUBL SL PRN (12:21)
[2020-08-21] MEDS ORDERED: Dextrose Gel 15 GM/37.5 ML TUBE PO PRN ×2 (13:37)
[2020-08-21] MEDS ORDERED: *HR* Dextrose 50 % in Water (Vial) 50 ML VIAL IVP PRN (13:37)
[2020-08-21] MEDS ORDERED: D5% in Water 1,000 ML IVC PRN (13:37)
[2020-08-21] MEDS: Insulin LISPRO 300 UNITS/3 ML VIAL SQ SCH ×2 (16:28→20:04)
[2020-08-21] MEDS: *HR* Heparin 5,000 UNIT/ML VIAL SQ SCH (18:21)
[2020-08-22 05:05] LABS: Basophils % 0.6 %; Eosinophils # 0.2 K/mcL (0.0-0.6); Eosinophils % 3.3 %; Estimated Average Glucose 160 mg/dl; Hematocrit 39.5 % (37.5-50.1); Hemoglobin 13.4 g/dL (12.9-16.9); Immature Granulocytes % 0.3 % (0-4); Lymphocytes # 1.7 K/mcL (0.6-4.6); Lymphocytes % 26.2 %; Mean Corpuscular HGB Conc 33.9 g/dL (31.6-35.5); Mean Corpuscular Hemoglobin 29.6 pg (28.0-33.3); Mean Corpuscular Volume 87.4 fL (83.0-100.0); Mean Platelet Volume 9.8 fL (9.4-12.4); Monocytes # 0.7 K/mcL (0.0-1.3); Monocytes % 10.1 %; Neutrophils # 3.9 K/mcL (1.6-8.9); Platelet Count 213 K/mcL (140-400); Red Blood Count 4.52 M/mcL (4.19-5.50); Red Cell Distribution Width 13.3 % (11.5-14.5); Segmented Neutrophils % 59.5 %; White Blood Count 6.6 K/mcL (4.3-11.1)
[2020-08-22 05:19] LABS: BUN/Creatinine Ratio 15 (6-26); Blood Urea Nitrogen 14 mg/dL (8-23); Calcium 9.6 mg/dL (8.6-10.3); Carbon Dioxide 28 mEq/L (23-29); Chloride 106 mEq/L (98-107); Glucose 134 mg/dL (70-105); Magnesium 1.6 mg/dL (1.6-2.6); Osmolality,Calculated 286 (280-300); Potassium 3.5 mEq/L (3.5-5.1); Sodium 137 mEq/L (136-145); eGFR For African Americans > 60 (> 60); eGFR For Non-African Americans > 60 (> 60)
[2020-08-22 05:21] LABS: Chol/HDL Ratio 2.6 (0-4.9)
[2020-08-22] MEDS: *HR* Heparin 5,000 UNIT/ML VIAL SQ SCH ×2 (05:32→15:51)
[2020-08-22] MEDS ORDERED: Regadenoson 0.4 MG/5 ML SYRINGE IVP ONE (06:36)
[2020-08-22] MEDS: Insulin LISPRO 300 UNITS/3 ML VIAL SQ SCH ×4 (09:54→20:45)
[2020-08-22] MEDS: Aspirin Enteric Coated 81 MG Tablet PO SCH (09:54)
[2020-08-22] MEDS ORDERED: Fluticasone Propionate Nasal 50 MCG/SPRAY BOTTLE NS PRN (12:01)
[2020-08-22] MEDS: ALPRAZolam 0.5 MG TABLET PO SCH ×2 (13:45→20:49)
[2020-08-22] MEDS ORDERED: Heparin 1,000 UNITS/500 mL 500 ML ONE (14:38)
[2020-08-22] MEDS ORDERED: *HR* Heparin 10,000 UNIT/10 ML VIAL ONE (14:38)
[2020-08-22] MEDS ORDERED: *HR* FentaNYL (PF) 100 MCG/2 ML VIAL ONE (14:38)
[2020-08-22] MEDS ORDERED: *HR* Midazolam HCl 2 MG/2 ML VIAL ONE (14:38)
[2020-08-22] MEDS ORDERED: ISOVUE-370 200 ML INFUS..BTL ONE (14:38)
[2020-08-22] MEDS ORDERED: 0.9 % Sodium Chloride 2,000 ML ONE (14:38)
[2020-08-22] MEDS ORDERED: Nitroglycerin 1,000 MCG/10 ML VIAL IV ONE (14:39)
[2020-08-22] MEDS: 0.9 % Sodium Chloride 1,000 ML IVC SCH (15:55)
[2020-08-23] MEDS: 0.9 % Sodium Chloride 1,000 ML IVC SCH (02:07)
[2020-08-23 06:11] LABS: BUN/Creatinine Ratio 16 (6-26); Blood Urea Nitrogen 14 mg/dL (8-23); Calcium 9.2 mg/dL (8.6-10.3); Carbon Dioxide 28 mEq/L (23-29); Chloride 105 mEq/L (98-107); Glucose 140 mg/dL (70-105); Magnesium 1.6 mg/dL (1.6-2.6); Osmolality,Calculated 291 (280-300); Potassium 3.5 mEq/L (3.5-5.1); Sodium 139 mEq/L (136-145); eGFR For African Americans > 60 (> 60); eGFR For Non-African Americans > 60 (> 60)
[2020-08-23] MEDS: *HR* Heparin 5,000 UNIT/ML VIAL SQ SCH (06:23)
[2020-08-23 07:45] VITALS: BP 135/64
[2020-08-23] MEDS: Insulin LISPRO 300 UNITS/3 ML VIAL SQ SCH (08:06)
[2020-08-23] MEDS: ALPRAZolam 0.5 MG TABLET PO SCH (08:14)
[2020-08-23] MEDS: Aspirin Enteric Coated 81 MG Tablet PO SCH (08:14)
[2020-08-23] MEDS ORDERED: Metoprolol XL (24 HR) Succ 25 MG TAB.ER.24H PO SCH (09:00)
[2020-08-23] MEDS ORDERED: hydroCHLOROthiazide 25 MG TABLET PO SCH (09:00)
== END 2020-08-23 10:40 | disposition home or self-care (01) | DRG 287 ==
LOC: 3BNU 11:12 → EMEROOARM 11:12 → SUATTDRO 12:36 → 3BNU 13:25
PROVIDERS: ADMIT Internal Medicine; ATTEND Internal Medicine